=== PATIENT | female | born 1975 | race Caucasian/White ===

== ENCOUNTER 2022-06-03 14:12 | Emergency (ER) | payer OTHER ==
[2022-06-03] MEDS ORDERED: HYDROmorphone 1 MG/ML Syringe IM ONE (16:04)
[2022-06-03] MEDS ORDERED: Ondansetron 4 MG Tab.DIS PO ONE (16:13)
== END 2022-06-03 18:25 | disposition home or self-care (01) ==
LOC: JD.ED 14:12
DX: S51.831A Puncture wound without foreign body of right forearm, initial encounter (principal); S80.11XA Contusion of right lower leg, initial encounter; S10.93XA Contusion of unspecified part of neck, initial encounter; Z88.5 Allergy status to narcotic agent; Z86.16 Personal history of COVID-19; Z48.02 Encounter for removal of sutures; V89.2XXA Person injured in unspecified motor-vehicle accident, traffic, initial encounter; Y92.410 Unspecified street and highway as the place of occurrence of the external cause
CPT/HCPCS: 36415; 80053; 85025; 96372; 99283; 99284; A9270-GY; J1170